=== PATIENT | female | born 1955 | race Caucasian/White ===

== ENCOUNTER → 2023-08-10 | Outpatient (CLI) | payer MEDICARE, OTHER ==
--- NOTE | 2023-08-10 09:48 | USB ---
Reason for Exam: Clinical finding. Risk Values: [place] 5 year model risk: 1.1%. NCI Lifetime model risk: 3.7%. Technique: Method: Whole Breast Handheld. Findings: The whole breast of both breasts, the axilla of both breasts and the retroareolar of both breasts were scanned. A complete US of all four quadrants of the the bilateral breasts, axilla, and retro-areolar region were reviewed. Right: * Echogenic areas deep along the breast were seen previously. There is a history of 2 previous silicone implant removals. * More nodular echogenic area measuring 8 mm at 4:00 is unchanged, likely focal silicone deposit. * A deep fluid collection measuring 4.0 x 2.9 x 1.2 cm at the 9:00 position is unchanged. * No other solid or cystic lesion or axillary lymphadenopathy. Left: * 2.0 cm nodular echogenic area in the axilla likely silicone within the axillary lymph node remains unchanged. * Deep along the 3:00 position of the left breast, fluid collection measuring 2.6 x 2.5 x 1.0 cm appears to be smaller compared to 2020. * No other solid or cystic lesion. Overall Assessment: Incomplete: need additional imaging evaluation, BI-RAD 0 Management: Diagnostic Mammogram of both breasts. As the patient is overdue for annual exam. Further clinical management of patient's chronic bilateral breast pain. A clinical breast exam by your physician is recommended on an annual basis and results should be correlated with mammographic findings. This exam should not preclude additional follow-up of suspicious palpable abnormalities. Results were given to the patient verbally at the time of exam. Electronically signed and approved by: Jack Rojas M.D. Radiologist
--- NOTE | 2023-08-10 10:32 | MM ---
Reason for Exam: Additional evaluation requested from prior study. Last mammogram was performed 3 year(s) and 0 month(s) ago. Patient History: Menarche at age 10. First Full-Term at age 15. Postmenopausal. Patient has history of breast feeding. Breast cancer, bilateral, age 30. Bilateral Lumpectomy. 2017, Bilateral Implant Removal. 2006, Bilateral Implants. Prior Study Comparison: 11/14/2019 Bilateral Diagnostic Mammogram, [facility]. 01/04/2021 Bilateral Diagnostic Mammogram, [facility]. Tissue Density: The breasts are almost entirely fatty. Findings: Analyzed By CAD. Chronic bilateral breast deformities. No suspicious calcification, significant masses, or other discrete abnormality is seen. Overall Assessment: Benign, BI-RAD 2 Management: Screening Mammogram of both breasts in 1 year. Further clinical management of patient's chronic breast pain. Results were given to the patient verbally at the time of exam. Patient should continue monthly self-breast exams. A clinical breast exam by your physician is recommended on an annual basis. This exam should not preclude additional follow-up of suspicious palpable abnormalities. Electronically signed and approved by: Jack Rojas M.D. Radiologist
== END | disposition home or self-care (01) ==
LOC: RADUSWWP 08:45
PROVIDERS: ATTEND Family Medicine
DX: R92.313 Mammographic fatty tissue density, bilateral breasts (principal); Z85.3 Personal history of malignant neoplasm of breast; Z78.0 Asymptomatic menopausal state
CPT/HCPCS: 77066; 76641; G0279; 77062